=== PATIENT | female | born 2005 | race Caucasian/White ===

== ENCOUNTER 2024-05-12 01:00 | Inpatient (IN) | payer OTHER ==
[2024-05-12] MEDS: ELECTROLYTE-148 SOLN 500 ML IV ONE (02:30)
[2024-05-12 02:45] VITALS: BMI 28.8
[2024-05-12] MEDS: CITRIC ACID/SODIUM CITRATE 30 ML UNIT-DOSE CUP PO ONE (03:00)
[2024-05-12 03:02] LABS: BASO % 0.3 % (0-2.0); EOS % 0.8 % (0-4.5); HEMATOCRIT 35.4 % (32.4-45.2); HEMOGLOBIN 11.6 GM/dL (10.7-15.3); LYMPH % 16.6 % (8-40); MCH 25.2 pg (25.7-33.7); MCHC 32.8 g/dl (32.0-36.0); MEAN CELL VOLUME 76.7 fl (80-96); MEAN PLT VOLUME 8.7 fl (7.5-11.1); MONO % 7.8 % (3.8-10.2); NEUT % 74.5 % (42.8-82.8); PLATELET COUNT 235 10^3/uL (134-434); RBC 4.61 M/mm3 (3.60-5.2); RDW 15.2 % (11.6-15.6); WHITE BLOOD COUNT 9.5 K/mm3 (4.0-10.0)
[2024-05-12 03:09] LABS: INR 0.96 (0.83-1.09); PROTHROMBIN TIME (PATIENT) 10.9 SEC (9.7-13.0)
[2024-05-12 03:11] LABS: ACTIVATED PTT 30.2 SECONDS (25.2-36.5)
[2024-05-12 03:24] LABS: URINE BARBITURATES NEGATIVE (NEGATIVE)
[2024-05-12] MEDS ORDERED: morphine SULFATE/PF 1 MG/2 ML (2cc Syringe - QUVA) ONE (03:26)
[2024-05-12] MEDS ORDERED: FENTANYL CITRATE/PF 50 MCG/ML VIAL ONE (03:26)
[2024-05-12] MEDS ORDERED: ONDANSETRON 4 MG/2 ML VIAL ONE (03:27)
[2024-05-12] MEDS ORDERED: METOCLOPRAMIDE HCL INJECTION 10 MG/2 ML VIAL ONE (03:27)
[2024-05-12] MEDS ORDERED: ceFAZolin SODIUM 1 GM VIAL ONE (03:27)
[2024-05-12] MEDS ORDERED: PHENYLEPHRINE HCL 10 MG/1 ML SINGLE DOSE VIAL ONE (03:27)
[2024-05-12] MEDS ORDERED: DEXAMETHASONE SOD PHOSPHATE 4 MG/1 ML VIAL ONE (03:27)
[2024-05-12 03:35] LABS: POTASSIUM 4.9 mmol/L (3.5-5.1)
[2024-05-12 03:36] LABS: CALCIUM 9.9 mg/dL (8.5-10.1)
[2024-05-12 03:37] LABS: BLOOD UREA NITROGEN 10.3 mg/dL (7-18)
[2024-05-12 03:40] LABS: CREATININE 0.6 mg/dL (0.55-1.3)
[2024-05-12] MEDS ORDERED: OXYTOCIN 10 UNITS/ML VIAL ONE (04:07)
[2024-05-12 04:18] LABS: HIV INTERPRETATION NEGATIVE (NEGATIVE)
[2024-05-12] MEDS ORDERED: KETOROLAC TROMETHAMINE 30 MG/1 ML VIAL ONE (04:30)
[2024-05-12 05:12] LABS: CORD BASE EXCESS -3.9 mmol/L (0-2); CORD HCO3 22.3 mmHg (20-29); CORD HCO3 25.3 mmHg (20-29); CORD PCO2 44.1 mmHg (30-78); CORD PCO2 57.2 mmHg (30-78); CORD pH 7.264 (7.14-7.44); CORD pH 7.321 (7.14-7.44)
[2024-05-12] MEDS ORDERED: METHYLERGONOVINE MALEATE 0.2 MG/1 ML AMP IM PRN (05:13)
[2024-05-12] MEDS ORDERED: ACETAMINOPHEN 325 MG TABLET (FP) PO PRN (05:13)
[2024-05-12] MEDS ORDERED: OXYTOCIN 20 UNITS in 0.9% NS 20 UNIT/1,000 ML INFUS.BAG IV ONE ×2 (05:24→13:32)
[2024-05-12] MEDS ORDERED: ONDANSETRON 4 MG/2 ML VIAL IVPUSH PRN (05:26)
[2024-05-12] MEDS: OXYTOCIN 20 UNITS in 0.9% NS 20 UNIT/1,000 ML INFUS.BAG IV SCH (05:30)
[2024-05-12] MEDS ORDERED: morphine SULFATE/PF 1 MG/2 ML (2cc Syringe - QUVA) IT ONE (06:00)
[2024-05-12] MEDS: ELECTROLYTE-148 SOLN 1,000 ML IV SCH (06:31)
[2024-05-12] MEDS ORDERED: ACETAMINOPHEN INJECTION 100 ML ONE (06:47)
[2024-05-12] MEDS: ACETAMINOPHEN 1000 MG/100 ML BAG IVPB PRN (06:50)
[2024-05-12 14:29] LABS: COCAINE, UR NEGATIVE (NEGATIVE); METHADONE, UR NEGATIVE (NEGATIVE); OPIATES, URI NEGATIVE (NEGATIVE); URINE BENZODIAZEPINES NEGATIVE (NEGATIVE)
[2024-05-12 14:30] LABS: PHENCYCLIDINE,URINE NEGATIVE (NEGATIVE); URINE AMPHETAMINES NEGATIVE (NEGATIVE)
[2024-05-12] MEDS: morphine SULFATE/PF 1 MG/2 ML (2cc Syringe - QUVA) IT ONE (19:31)
[2024-05-12] MEDS: IBUPROFEN 600 MG TABLET (FP) PO PRN (22:05)
[2024-05-12] MEDS: SIMETHICONE 80 MG TAB.CHEW (FP) PO PRN (22:06)
[2024-05-12] MEDS: oxyCODONE HCL 5 MG TABLET PO PRN (23:50)
[2024-05-13] MEDS ORDERED: BISACODYL 10 MG SUPP.RECT RC PRN (05:13)
[2024-05-13 06:11] LABS: BASO % 0.3 % (0-2.0); EOS % 0.3 % (0-4.5); HEMATOCRIT 28.7 % (32.4-45.2); HEMOGLOBIN 9.2 GM/dL (10.7-15.3); LYMPH % 15.2 % (8-40); MEAN CELL VOLUME 78.2 fl (80-96); MEAN PLT VOLUME 8.3 fl (7.5-11.1); MONO % 5.5 % (3.8-10.2); NEUT % 78.7 % (42.8-82.8); PLATELET COUNT 180 10^3/uL (134-434); RBC 3.67 M/mm3 (3.60-5.2); RDW 15.4 % (11.6-15.6); WHITE BLOOD COUNT 9.3 K/mm3 (4.0-10.0)
[2024-05-13] MEDS: oxyCODONE HCL 5 MG TABLET PO PRN (07:19)
[2024-05-13] MEDS: IBUPROFEN 600 MG TABLET (FP) PO SCH (10:23)
[2024-05-13] MEDS: ACETAMINOPHEN 500 MG TABLET (FP) PO SCH (10:23)
[2024-05-14 10:44] VITALS: RESP 18
[2024-05-14] MEDS: DOCUSATE SODIUM 100 MG CAPSULE (FP) PO SCH (21:59)
[2024-05-15 08:07] LABS: BASO % 0.3 % (0-2.0); EOS % 2.4 % (0-4.5); HEMATOCRIT 29.2 % (32.4-45.2); HEMOGLOBIN 9.6 GM/dL (10.7-15.3); LYMPH % 11.4 % (8-40); MCH 25.4 pg (25.7-33.7); MCHC 32.9 g/dl (32.0-36.0); MEAN CELL VOLUME 77.3 fl (80-96); MONO % 4.2 % (3.8-10.2); NEUT % 81.7 % (42.8-82.8); PLATELET COUNT 222 10^3/uL (134-434); RBC 3.77 M/mm3 (3.60-5.2); RDW 15.5 % (11.6-15.6); WHITE BLOOD COUNT 10.3 K/mm3 (4.0-10.0)
[2024-05-15 09:41] VITALS: BP 118/76; PULSE 87; TEMP 98.7
== END 2024-05-15 13:05 | disposition home or self-care (01) | DRG 540 ==
LOC: JDEL 01:00 → JLDR 02:15 → J3W 07:44
PROVIDERS: ADMIT Family Medicine; ATTEND Family Medicine
PROC: 10D00Z1 Extraction of Products of Conception, Low, Open Approach (ICD-10-PCS; principal; 2024-05-12)
DX: O80 Encounter for full-term uncomplicated delivery (principal); Z3A.39 39 weeks gestation of pregnancy; Z37.0 Single live birth
CPT/HCPCS: 36415; 36600; 59025; 80048; 80307; 82803; 85025; 85610; 85730; 86780; 86850; 86900; 86901; 87389; 88307-TC; 94010; J0131